=== PATIENT | male | born 1985 | race Caucasian/White ===

== ENCOUNTER 2020-10-31 01:22 | Emergency (ER) | payer OTHER ==
[~2020-10-31 01:22] MED LIST: ERYTHROMYCIN O3.5 GM OU
[2020-10-31] MEDS ORDERED: DOXYCYCLINE MO100 MG PO (02:19)
== END 2020-10-31 02:21 | disposition home or self-care (01) ==
LOC: ER1 01:22
DX: R21 Rash and other nonspecific skin eruption (principal); I10 Essential (primary) hypertension; E78.5 Hyperlipidemia, unspecified; E11.9 Type 2 diabetes mellitus without complications; K21.9 Gastro-esophageal reflux disease without esophagitis
CPT/HCPCS: 99282